=== PATIENT | female | born 1985 | race Two or more races ===

== ENCOUNTER 2020-05-01 11:33 | Inpatient (IN) | payer OTHER ==
[~2020-05-01] VITALS: Ht 152.4 cm; Wt 88.0 kg
[2020-05-02] MEDS ORDERED: LANSOPRAZOLE30 MG (08:03)
== END 2020-05-03 12:34 | disposition home or self-care (01) | DRG 806 ==
LOC: LDR 11:33 → OB/GYN 11:33
PROVIDERS: ADMIT Specialist; ATTEND Specialist
PROC: 10E0XZZ Delivery of Products of Conception, External Approach (ICD-10-PCS; principal; 2020-05-01)
PROC: 0KQM0ZZ Repair Perineum Muscle, Open Approach (ICD-10-PCS; 2020-05-01)
PROC: 10907ZC Drainage of Amniotic Fluid, Therapeutic from Products of Conception, Via Natural or Artificial Opening (ICD-10-PCS; 2020-05-01)
PROC: 3E033VJ Introduction of Other Hormone into Peripheral Vein, Percutaneous Approach (ICD-10-PCS; 2020-05-01)
PROC: 4A1HXFZ Monitoring of Products of Conception, Cardiac Rhythm, External Approach (ICD-10-PCS; 2020-05-01)
DX: O70.1 Second degree perineal laceration during delivery (principal); O10.02 Pre-existing essential hypertension complicating childbirth; Z37.0 Single live birth; O24.424 Gestational diabetes mellitus in childbirth, insulin controlled; Z3A.38 38 weeks gestation of pregnancy; Z20.822 Contact with and (suspected) exposure to COVID-19